=== PATIENT | male | born 1965 | race Caucasian/White ===

== ENCOUNTER 2018-12-11 17:25 | Emergency (ER) | payer SELFPAY ==
[~2018-12-11] VITALS: Ht 180.3 cm; Wt 106.6 kg
--- OUTSIDE RECORDS SUMMARY | 2018-12-11 17:27 | XMS REPORT ---
Author [facility] Address Unknown Phone Unavailable Care Team Providers Care Geodesy Teacher Name Role Phone Unavailable Unavailable Payers Payer Name Policy Type Policy Number Effective Date Expiration Date Problems This patient has no known problems. Allergies, Adverse Reactions, Alerts Allergy Name Allergy Type Status Severity Reaction(s) Onset Date Inactive Date Treating Clinician Comments No Known Allergies DA Active U 2017-07-04 00:00:00 Medications This patient has no known medications. Results Test Description Test Time Test Comments Text Results Atomic Results Result Comments B-TYPE NATRIURETIC PEPTIDE 2018-12-07 10:08:00 B-TYPE NATRIURETIC PEPTIDE (test code=BNP) 13.1 PG/ML 0-100 TROPONIN-I [id number] 09:35:00* Test Item Value Reference Range Comments TROPONIN-I RAPID (test code=TROPIRAP) 0.00 ng/mL 0.00-0.08 Performed by certified booster pump operator at [facility] Negative: <=0.08 Positive: >=0.09An elevated troponin value alone is not sufficient todiagnose a myocardial infarction. Rather, the patient sclinical presentation (history, physical exam) and ECGshould be used in conjunction with troponin in thediagnostic evaluation of suspected myocardial infarction. Aserial sampling protocol is recommended to facilitate the identification of temporal changes in troponin levels characteristic of PA. CBC W/AUTO [id number] 09:34:00* Test Item Value Reference Range Comments WHITE BLOOD CELL (test code=WBC) 6.39 x10 3/uL 4.5-11.0 RED BLOOD CELL (test code=RBC) 5.99 x10 6/uL 4.00-5.60 HEMOGLOBIN (test code=HGB) 14.8 g/dL 12.5-16.9 HEMATOCRIT (test code=HCT) 47.3 % 37.5-50.7 MEAN CELL VOLUME (test code=MCV) 79.0 fL 81.0-99.0 MEAN CELL HGB (test code=MCH) 24.7 pg 27.0-33.0 MEAN CELL HGB CONCETRATION (test code=MCHC) 31.3 g/dL 33.0-37.0 RED CELL DISTRIBUTION WIDTH CV (test code=RDW) 15.6 % 11.5-14.5 RED CELL DISTRIBUTION WIDTH SD (test code=RDW-SD) 44.3 fL 37.0-54.0 PLATELET COUNT (test code=PLT) 266 x10 3/uL 150-400 MEAN PLATELET VOLUME (test code=MPV) 10.1 fL 7.0-9.0 NEUTROPHIL % (test code=NT%) 59.8 % 56.0-77.0 IMMATURE GRANULOCYTE % (test code=IG%) 0.3 % 0.0-2.0 LYMPHOCYTE % (test code=LY%) 23.9 % 14.0-32.0 MONOCYTE % (test code=MO%) 12.5 % 4.8-9.0 EOSINOPHIL % (test code=EO%) 3.0 % 0.3-3.7 BASOPHIL % (test code=BA%) 0.5 % 0.0-2.0 NUCLEATED RBC % (test code=NRBC%) 0.0 % 0-0 NEUTROPHIL # (test code=NT#) 3.82 x10 3/uL 2.0-7.6 IMMATURE GRANULOCYTE # (test code=IG#) 0.02 x10 3/uL 0.00-0.03 LYMPHOCYTE # (test code=LY#) 1.53 x10 3/uL 1.0-3.8 MONOCYTE # (test code=MO#) 0.80 x10 3/uL 0.1-0.8 EOSINOPHIL # (test code=EO#) 0.19 x10 3/uL 0.0-0.2 BASOPHIL # (test code=BA#) 0.03 x10 3/uL 0.0-0.2 NUCLEATED RBC # (test code=NRBC#) 0.00 x10 3/uL 0.0-0.1 MANUAL DIFF REQUIRED (test code=MDIFF) NO - XR CHEST 1 [id number] 09:34:00 FAX: Avery Lal MD [phone] [place]: St: REG Name: SHAHEEN ESPANA [facility] : [birth year] Age/S: 53/M [address] [place] [address] Blvd Unit #: [id number] Loc: [address] [address] Phys: Avery Rossi MD Acct: [id number] Dis Date: Status: REG ER PHONE #: [phone] Exam Date: 12/07/2018925 FAX #: [phone] Reason: Chest Pain EXAMS: CPT CODE: [id number] XR CHEST 1 V [id number] PROCEDURE: CHEST SINGLE VIEW INDICATION: Chest pain COMPARISON: 07/04/2017 FINDINGS: The lungs are clear. The pleura, cardiomediastinal silhouette a nd bony thorax are normal. No vascular congestion is present. IMPRESSION: No acute cardiopulmonary process. SL: [id number] at 0934 Reported and signed by: Gordon Solorzano M.D. CC: Farhan Rossi MD Technologist: Deandra Liang en, RT(R) Trnscrd Date/Time/By: 12/07/2018 (093 4) : By: [email or web address] Orig Print D/T: S: 12/07/2018 (0937) PAGE 1 Signed Report CHEMISTRY 8 [id number] 09:29:00* Test Item Value Reference Range Comments ISTAT-SODIUM (test code=NAP) MMOL/L 134-147 ISTAT-POTASSIUM (test code=KP) MMOL/L 3.4-5.0 ISTAT-CHLORIDE (test code=CLP) MMOL/L 100-108 ISTAT CARBON DIOXIDE (test code=ISTAT-CO2) mmol/L 21-33 ISTAT CALCIUM IONIZED (test code=ISTAT-MAGGIE) MG/DL 1.12-1.32 ISTAT-GLUCOSE (test code=GLUP) MG/DL 70-110 ISTAT-BUN (test code=BUNP) MG/DL 7-18 BEDSIDE CREATININE (test code=CREATBED) MG/DL 0.6-1.3 GLOMERULAR FILTRATION RATE POC (test code=GFRBED) 84 ML/MIN CHEMISTRY 8 [id number] 09:29:00* Test Item Value Reference Range Comments ISTAT-SODIUM (test code=NAP) 141 MMOL/L 134-147 ISTAT-POTASSIUM (test code=KP) 3.7 MMOL/L 3.4-5.0 ISTAT-CHLORIDE (test code=CLP) 100 MMOL/L 100-108 Performed by certified booster pump operator at [facility] ISTAT CARBON DIOXIDE (test code=ISTAT-CO2) 27.0 mmol/L 21-33 ISTAT CALCIUM IONIZED (test code=ISTAT-MAGGIE) 1.17 MG/DL 1.12-1.32 ISTAT-GLUCOSE (test code=GLUP) 109 MG/DL 70-110 ISTAT-BUN (test code=BUNP) 18 MG/DL 7-18 BEDSIDE CREATININE (test code=CREATBED) 1.0 MG/DL 0.6-1.3 GLOMERULAR FILTRATION RATE POC (test code=GFRBED) 84 ML/MIN
[2018-12-11] MEDS ORDERED: LIDOCAINE 5% PATCH TP STA (18:29)
[2018-12-11 19:16] LABS: ANION GAP 13.4 mmol/L (8-16); BLOOD UREA NITROGEN 16 mg/dL (7-26); BUN/CREATININE RATIO 15 (6-25); CALCIUM 9.5 mg/dL (8.4-10.2); CARBON DIOXIDE 28 mmol/L (22-29); CHLORIDE 99 mmol/L (98-107); CREATINE KINASE 68 IU/L (30-200); CREATININE, SERUM 1.05 mg/dL (0.72-1.25); EST GLOMERULAR FILTRATION RATE > 60 ML/MIN (60-); GLUCOSE 106 mg/dL (74-118); POTASSIUM 3.4 mmol/L (3.5-5.1); SODIUM 137 mmol/L (136-145)
[2018-12-11 19:20] LABS: BASOPHILS % 0.4 % (0.0-1.0); EOSINOPHILS # (AUTO) 0.3 (0.0-0.4); EOSINOPHILS % 5.7 % (0.0-6.0); HEMATOCRIT 46.9 % (38.2-49.6); HEMOGLOBIN 14.8 g/dL (14.0-18.0); LYMPHOCYTES # (AUTO) 1.2 (1.0-3.2); LYMPHOCYTES % 23.8 % (18.0-39.1); MEAN CORPUSCULAR HEMOGLOBIN 24.6 pg (28-32); MEAN CORPUSCULAR HGB CONC 31.6 g/dL (31-35); MONOCYTES # (AUTO) 0.6 (0.2-0.8); MONOCYTES % 12.9 % (4.4-11.3); NEUTROPHILS # (AUTO) 2.8 (2.1-6.9); PLATELET COUNT 220 x10e3/uL (140-360); RED BLOOD COUNT 6.01 x10e6/uL (4.3-5.7); RED CELL DISTRIBUTION WIDTH 15.9 % (11.7-14.4)
[2018-12-11] MEDS ORDERED: LIDOCAINE 5% PATCH TP SCH (20:42)
[2018-12-11 21:08] VITALS: BP 140/84
== END 2018-12-11 21:18 | disposition home or self-care (01) ==
LOC: ER 17:25
DX: R07.89 Other chest pain (principal)
CPT/HCPCS: 36415; 80048; 82550; 82553; 84484; 85025; 93005; 99284